=== PATIENT | male | born 1960 | race Caucasian/White ===

== ENCOUNTER → 2021-12-07 08:21 | Outpatient (CLI) | payer BC, SELFPAY ==
--- NOTE | 2021-12-07 08:30 | US_ITS ---
FINAL REPORT TECHNIQUE: Sonographic images were obtained of the retroperitoneum. CLINICAL HISTORY: RENAL INSUFFICIENCY FINDINGS: The right kidney measures 8.7 cm. The left kidney measures 10.1 cm. Two benign simple left renal cysts measuring up to 15 mm. The spleen measures 12.4 cm. IMPRESSION: Mild splenomegaly. Benign simple left renal cysts. Reviewed, Interpreted and Dictated by Karlie Baig MD Transcribed by Epi Andrews Authenticated and [facility]
== END ==
PROVIDERS: PCP Family Medicine; Visit Provider Family Medicine
DX: N28.89 Other specified disorders of kidney and ureter (principal)
CPT/HCPCS: 76770

== ENCOUNTER 2021-12-11 08:48 | Emergency (ER) | payer BC, SELFPAY ==
[2021-12-11 09:00] VITALS: BP 151/83; PULSE 60; RESP 18; TEMP 36.4; O2SAT 99; BMI 28.2
--- NOTE | 2021-12-11 09:24 | EXP.UTC ---
Discharge Plan Disposition Patient Disposition: Home, Self-Care Condition: Good Prescriptions Prescriptions: New cyclobenzaprine 10 mg Tablet 10 mg PO BID PRN (Reason: Muscle Spasm) Qty: 20 0RF methylprednisolone 4 mg Tablets,Dose Pack 4 mg PO DIRECTED Qty: 21 0RF No Action levothyroxine [Synthroid] 137 mcg tablet 137 mcg PO DAILY rosuvastatin 10 mg tablet 10 mg PO DAILY fenofibrate nanocrystallized 145 mg tablet 145 mg PO DAILY Referrals Follow up/Referrals: Karlie Reynolds MD [Primary Care Provider] - See instructions Carlton Espinoza MD [Staff Physician] - See instructions Activity Restrictions/Add. Instructions Additional Instructions/Restrictions: Rest the extremity, apply ice for 15 minutes as tolerated three or four times per day, Wear the traci wrap for compression, Elevate the extremity as tolerated while you are resting. Take the medications as prescribed. Follow up with Dr. Espinoza (orthopedics). I put in a referral but you need to call his office and schedule an appointment. Follow up with your regular doctor. GO TO THE ER FOR ANY WORSENING SYMPTOMS Don't start the oral steroids until tomorrow, since you had the shot here today. The muscle relaxer (cyclobenzaprine--Flexeril) will make you drowsy, so don't drive or operate heavy machinery after taking it. Clinical Impressions Clinical Impression: Acute pain of right shoulder Stand Alone Forms Stand Alone Forms: Work/School Release Instructions Patient Instructions: Shoulder Tendinopathy, DI for Shoulder Pain Discharge ED Provider: Vikram Cantor [facility] General Stated complaint: right shoulder pain, no accident Mode of Arrival: Ambulatory Source of Information: Patient Limitations: No Limitations Time Seen by Provider: 12/11/21 09:24 Description of Symptoms (Recalled from Triage Doc. by RN): PATIENT C/O RIGHT SHOULDER PAIN THAT RADIATES DOWN ARM INTO HAND THAT STARTED YESTERDAY. NO KNOWN INJURY HEENT Symptoms (Recalled from RN notes): No Resp Symptoms (Recalled from RN notes): No Skin Symptoms (Recalled from RN notes): No MS Symptoms (Recalled from RN notes): Yes Functional Status (Recalled from RN notes): WNL History of Present Illness Provider Complaint: He states that since yesterday his right shoulder has been painful and stiff. He has pain when he raises his arm over his head. He denies any recent injury. He has had episodes of right shoulder pain similar to this in the past Related Data Home Medications Medication Instructions Recorded Confirmed fenofibrate nanocrystallized 145 145 mg PO DAILY Cholesterol 12/11/21 12/11/21 mg tablet levothyroxine 137 mcg tablet 137 mcg PO DAILY THYROID 12/11/21 12/11/21 (Synthroid) rosuvastatin 10 mg tablet 10 mg PO DAILY Cholesterol 12/11/21 12/11/21 Previous Rx's Medication Instructions Recorded cyclobenzaprine 10 mg tablet 10 mg PO BID PRN Muscle Spasm #20 12/11/21 tabs methylprednisolone 4 mg tablets in 4 mg PO DIRECTED #21 tabs 12/11/21 a dose pack Allergies Allergy/AdvReac Type Severity Reaction Status Date / Time No Known Allergies Allergy Verified 02/28/19 17:56 Worker's Comp Is this a Worker's Comp case?: No [facility] Medical History Thyroid disease Social History Smoking Status: Never smoker alcohol intake: never current occupational status: other Travel in the last 8 weeks: None ROS Obtained: Yes All systems reviewed & no additional complaints except as documented Constitutional Constitutional: Denies chills and Denies fever(s) Integumentary/Breasts Skin/Breast: Denies redness, Denies rash and Denies wounds Neurologic Neurologic: Denies paresthesias Physical Exam General General appearance: alert and in no apparent distress Head Head exam: atraumatic, normocephalic and normal inspect
[2021-12-11 09:47] VITALS: BP 151/83; PULSE 60; RESP 18; TEMP 36.4; O2SAT 99
== END 2021-12-11 09:59 | disposition home or self-care (01) ==
PROVIDERS: Emergency Provider Nurse Practitioner Family; PCP Family Medicine
DX: M25.511 Pain in right shoulder (principal); M62.838 Other muscle spasm; E07.9 Disorder of thyroid, unspecified; Z79.1 Long term (current) use of non-steroidal anti-inflammatories (NSAID); Z79.52 Long term (current) use of systemic steroids; Z79.899 Other long term (current) drug therapy
CPT/HCPCS: 96372; 99213; G0463

== ENCOUNTER → 2021-12-13 09:33 | Outpatient (CLI) | payer BC, SELFPAY ==
--- NOTE | 2021-12-13 09:37 | XR_ITS ---
FINAL REPORT CLINICAL HISTORY: right shoulder pain x 2 days went to [facility] and given medication with no improvement FINDINGS: RIGHT SHOULDER 3 views of the right shoulder were obtained. There is mild degenerative change of the acromioclavicular joint. The joint spaces are intact. There is no soft tissue abnormality. IMPRESSION: Mild degenerative change of the acromioclavicular joint. Reviewed, Interpreted and Dictated by Del Hayward III, MD Transcribed by Yessy Piper Authenticated and [facility]
--- NOTE | 2021-12-13 11:11 | XR_ITS ---
FINAL REPORT CLINICAL HISTORY: neck/shoulder pain FINDINGS: AP and lateral Views were obtained. There is no acute fracture. There is no malalignment. There is rightward curvature. There are mild degenerative change with osteophytes. There is a chronic calcification posterior to C6. IMPRESSION: Mild degenerative change. Reviewed, Interpreted and Dictated by Del Hayward III, MD Transcribed by Epi Andrews Authenticated and [facility]
== END ==
PROVIDERS: PCP Family Medicine; Visit Provider Orthopaedic Surgery
DX: M25.511 Pain in right shoulder (principal); M54.2 Cervicalgia
CPT/HCPCS: 72040; 73030

== ENCOUNTER → 2021-12-20 14:47 | Outpatient (CLI) | payer BC, SELFPAY | PROVIDERS: PCP Family Medicine; Visit Provider Orthopaedic Surgery | DX: M54.2 Cervicalgia (principal) ==

== ENCOUNTER → 2021-12-22 13:04 | Outpatient (CLI) | payer BC, SELFPAY | PROVIDERS: PCP Family Medicine; Visit Provider Orthopaedic Surgery | DX: M54.2 Cervicalgia (principal) ==

== ENCOUNTER 2021-12-24 09:20 | Observation (INO) | payer BC, SELFPAY ==
[2021-12-24] VITALS (11 sets, daily range): BP systolic 117–157; BP diastolic 70–99; PULSE 82–100; RESP 16–18; TEMP 36.7–37.1; O2SAT 95–99; BMI 27.1; BMI 26.6
[2021-12-24 09:43] LABS: Coronavirus 19, PCR Not Detected (NotDetected); Influenza A, PCR Not Detected (NotDetected); Influenza B, PCR Not Detected (NotDetected)
--- NOTE | 2021-12-24 09:43 | PC.NURSE ---
at the bedside
[2021-12-24 09:45] LABS: Basophils # 0.1 K/mm3 (0-0.2); Basophils % 0.5 % (0.1-2.0); Eosinophils # 0.4 K/mm3 (0.0-0.4); Eosinophils % 2.3 % (0.1-12.0); Hematocrit 55.4 % (42.0-52.0); Hemoglobin 17.9 g/dL (14.1-18.0); Lymphocytes # 1.5 K/mm3 (0.7-4.5); Lymphocytes % 9.8 % (10-50); Mean Corpuscular HGB Conc 32.3 g/dL (31.8-35.4); Mean Corpuscular Hemoglobin 30.7 pg (27.0-31.2); Mean Corpuscular Volume 94.8 fl (80-94); Mean Platelet Volume 9.5 fl (7.4-10.4); Monocytes # 1.2 K/mm3 (0.1-1.0); Monocytes % 7.4 % (1.7-9.3); Neutrophils # 12.4 K/mm3 (1.8-7.8); Platelet Count 410 K/mm3 (142-424); Red Blood Count 5.84 M/mm3 (4.60-6.20); Red Cell Distribution Width 13.2 % (11.5-17.5); White Blood Count 15.5 K/mm3 (4.8-10.8)
[2021-12-24 09:49] LABS: MANUAL DIFFERENTIAL MANUAL DIFFERENTIAL (MANUAL DIFF)
[2021-12-24 09:52] LABS: Chloride 106 mmol/L (98-107); Sodium 136 mmol/L (136-145)
--- NOTE | 2021-12-24 09:52 | HMH.EDGENADL ---
Discharge Plan Disposition Patient Disposition: Admitted As Inpatient Condition: Good Clinical Impressions Clinical Impression: TOBIAS (acute kidney injury), Nausea, vomiting and diarrhea Discharge ED Provider: Fiona Gracia General Adult HPI General Chief complaint: Nausea/Vomiting/Diarrhea Stated complaint: Eyes dilated, diahrrea, vomitting Time Seen by Provider: 12/24/21 09:40 Mode of Arrival: Ambulatory Source of Information: Patient Limitations: No Limitations Description of Symptoms (Recalled from ER Triage Doc. by RN): pt to ed c/o n/v/d x3 days. pt reports generalized abd pain that he thinks is from vomiting. pt states he had a recent neck injury and was prescribed a combination of pain medication, muscle relaxers and anti-inflammatory medications that he believes caused his upset belly. History of Present Illness HPI narrative: This patient is a 61-year-old male presenting to the emergency department for evaluation of 3 days of vomiting and diarrhea. Patient states that he has had profuse watery diarrhea, waking up nearly every 15 minutes at night needing to go to the bathroom. He states that there is no blood or dark tarry material in his stool. His emesis is also nonbloody and nonbilious. He states that he has not been able to keep anything down in 3 days. He denies any true fevers or chills. Nothing seems to make his symptoms better or worse. He also denies any chest pain, shortness of breath, or other concerns. He states that he has mild, diffuse, nonspecific cramping abdominal pain that he attributes to his vomiting. He was thinking that it might be due to medications that he was on for shoulder pain, including tramadol, Flexeril, and [place]. He states that he is no longer taking these. He was only on them for a few days. He denies any other concerns at this time. Related Data Home Medications Medication Instructions Recorded Confirmed fenofibrate nanocrystallized 145 145 mg PO DAILY Cholesterol 12/11/21 12/24/21 mg tablet levothyroxine 137 mcg tablet 137 mcg PO DAILY THYROID 12/11/21 12/24/21 (Synthroid) rosuvastatin 10 mg tablet 10 mg PO DAILY Cholesterol 12/11/21 12/24/21 Allergies Allergy/AdvReac Type Severity Reaction Status Date / Time No Known Allergies [facility]ergy Verified 12/13/21 10:44 [facility] Medical History Thyroid disease Social History Smoking Status: Never smoker alcohol intake: never current occupational status: other Travel in the last 8 weeks: None ROS Obtained: Yes All systems reviewed & no additional complaints except as documented 14 point review of systems obtained and negative except otherwise mentioned in HPI. Physical Exam General General appearance: alert and in no apparent distress Head Head exam: atraumatic and normocephalic Eye Eye exam: Present normal appearance, PERRL and EOMI ENT ENT exam: Present normal exam, normal oropharynx and mucous membranes moist Neck Neck exam: Present normal inspection and full ROM Chest Chest inspection: Present normal inspection and symmetric chest wall rise Respiratory Respiratory exam: Present normal lung sounds bilaterally; Absent respiratory distress or wheezes Cardiovascular Cardiovascular exam: Present regular rate and normal rhythm Abdominal Exam Abdominal exam: Present soft and normal bowel sounds; Absent distention, tenderness, guarding or rebound Extremities Exam Extremities exam: Present normal inspection and full ROM; Absent tenderness or edema Back Exam Back exam: Present normal inspection Neurological Exam Neurological exam: Present alert and oriented X3 Psychiatric Psychiatric exam: Present normal affect Skin Skin exam: Present warm, dry and normal color Lymphatic Lymphatic Findings: no adenopathy Medical Decision Making Rajinder Inquiry Pt receiving controlled substance: No Vital Sig
[2021-12-24 09:53] LABS: Potassium 4.8 mmoL/L (3.5-5.1)
[2021-12-24 09:55] LABS: Alanine Aminotransferase 35 U/L (12-78); Albumin Level 4.1 g/dl (3.5-5.0); Albumin/Globulin Ratio 1.1 (1.1-1.8); Alkaline Phosphatase 59 U/L (38-126); Anion Gap 21.8 mEq/L (5-15); Aspartate Amino Transferase 45 U/L (17-59); Bilirubin,Total 1.2 mg/dl (0.2-1.3); Blood Urea Nitrogen 32 mg/dl (9-20); Carbon Dioxide 13 mmol/L (22.0-30.0); Creatinine Clearance Estimated 49 mL/min (50-200); Estimated Glomerular Filt Rate 41 ml/min (>60); GFR (African American) 50 ML/MIN (>60); Globulin 3.7 g/dL (1.3-3.2); Total Protein,Serum 7.8 g/dl (6.3-8.2)
[2021-12-24 09:56] LABS: Calcium 9.3 mg/dl (8.4-10.2); Glucose 131 mg/dl (74-100); Lactic Acid 1.6 mmol/L (0.7-2.1)
[2021-12-24 09:59] LABS: Eosinophils % 1 % (0-3); Lymphocytes % 11 % (10-50); Monocytes % 7 % (2-9); Neutrophils % 79 % (42-76); Total Cells Counted 100
[2021-12-24 10:00] LABS: Platelet Estimate Slight Increase; RBC Morphology Normal
[2021-12-24 10:03] LABS: Magnesium 1.6 mg/dl (1.6-2.3)
--- NOTE | 2021-12-24 10:09 | CT_ITS ---
PROCEDURE INFORMATION: Exam: CT Abdomen And Pelvis Without Contrast Exam date and time: 12/24/2021 10:09 AM Age: 61 years old Clinical indication: Abdominal pain; Generalized; Additional info: Pain, n/v/d TECHNIQUE: Imaging protocol: Computed tomography of the abdomen and pelvis without contrast. Radiation optimization: All CT scans at this facility use at least one of these dose optimization techniques: automated exposure control; mA and/or kV adjustment per patient size (includes targeted exams where dose is matched to clinical indication); or iterative reconstruction. COMPARISON: US KIDNEY 12/07/2021 8:43 AM FINDINGS: Liver: Normal. No mass. Gallbladder and bile ducts: Normal. No calcified stones. No ductal dilation. Pancreas: Normal. No ductal dilation. Spleen: Normal. No splenomegaly. Adrenal glands: Normal. No mass. Kidneys and ureters: Normal. No hydronephrosis. Stomach and bowel: Unremarkable. No obstruction. No mucosal thickening. Appendix: No evidence of appendicitis. Intraperitoneal space: Unremarkable. No free air. No significant fluid collection. Vasculature: Unremarkable. No abdominal aortic aneurysm. Lymph nodes: Unremarkable. No enlarged lymph nodes. Urinary bladder: Unremarkable as visualized. Reproductive: Unremarkable as visualized. Bones/joints: Unremarkable. No acute fracture. Soft tissues: Unremarkable. IMPRESSION: No acute findings.
--- NOTE | 2021-12-24 10:10 | PC.NURSE ---
CT changed to w/o contrast d/t gfr
--- NOTE | 2021-12-24 10:11 | PC.NURSE ---
radiology notified of rad order
--- NOTE | 2021-12-24 10:11 | PC.NURSE ---
pt to radiology via wheelchair
[2021-12-24 10:14] LABS: Lipase 58 U/L (23-300)
--- NOTE | 2021-12-24 10:29 | PC.NURSE ---
no needs voiced at this time. updated on POC
--- NOTE | 2021-12-24 11:23 | PC.NURSE ---
spoke with dr lozano about admit. 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
--- NOTE | 2021-12-24 12:22 | PC.NURSE ---
called report to dariana on the floor
--- NOTE | 2021-12-24 12:51 | PC.NURSE ---
Pt arrived to the floor at this time
[2021-12-24 13:19] LABS: Adenovirus F 40/41, stool Not Detected (NotDetected); Astrovirus Not Detected (NotDetected); Campylobacter Not Detected (NotDetected); Clostridium Difficile A/B, PCR Not Detected (NotDetected); Cryptosporidium Not Detected (NotDetected); Cyclospora Cayetanesis Not Detected (NotDetected); Entamoeba histolytica Not Detected (NotDetected); Enteroaggregative E coli Not Detected (NotDetected); Enteropathogenic E coli Not Detected (NotDetected); Enterotoxigenic E coli Not Detected (NotDetected); Giardia lamblia Not Detected (NotDetected); Norovirus Not Detected (NotDetected); Plesimonas Shigalloides, PCR Not Detected (NotDetected); Rotavirus A Not Detected (NotDetected); Salmonella, PCR Not Detected (NotDetected); Sapovirus Not Detected (NotDetected); Shiga-like toxin E coli Not Detected (NotDetected); Shigella Enterovasive E coli Not Detected (NotDetected); Vibrio Cholerae Not Detected (NotDetected); Vibrio, PCR Not Detected (NotDetected); Yersinia Entercolitica, PCR Not Detected (NotDetected)
--- NOTE | 2021-12-24 14:58 | EXP.HP ---
History of Present Illness *Admission Date: 12/24/21 *Reason for visit:: Diarrhea *History of present illness: This 61-year-old white male was admitted from the emergency room with diarrhea over the past several days. He is also been having right upper back pain. The story starts November 23 through November 30 when he was on an [place] [place] in the [facility]. He was carrying a backpack of about 25 pounds hiking [facility] [place] [facility]. When he got home he was feeling fine for about a week. Then he developed right upper back pain after a week. He has pain into his right hand and some numbness of his index finger. He was seen in the office of [facility] by Dr. Reynolds. He was treated with a steroid Dosepak and anti-inflammatory by mouth. After 1 day of the steroid Dosepak and the anti-inflammatory he developed abdominal cramping and diarrhea. The diarrhea has persisted. He discontinued the medications. In the emergency room he received IV fluids. A CT of the neck was obtained. See report. This morning he states he is feeling better but still has watery diarrhea. Specimen has been obtained for analysis. 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, [employer] well-balanced diet: daily or most days physical activity: walking special sung needs: No firearms in home: Yes Review of Systems Constitutional Constitutional: Reports system reviewed and no additional complaints, except as documented, Denies fever(s), Denies poor appetite and Denies lethargy Eyes Eyes: Reports system reviewed and no additional complaints, except as documented ENT Ears, Nose, Mouth, and Throat: Reports system reviewed and no additional complaints, except as documented *Cardiovascular Cardiovascular: Reports system reviewed and no additional complaints, except as documented, Denies chest pain, Denies claudication, Denies dyspnea on exertion, Denies irregular heart rhythm and Denies leg edema *Respiratory Respiratory: Denies dyspnea on exertion *Gastrointestinal Gastrointestinal: Reports change in bowel habits, Reports change in stool character, Reports diarrhea and Reports nausea *Genitourinary Genitourinary: Reports system reviewed and no additional complaints, except as documented and Denies difficulty urinating *Musculoskeletal Musculoskeletal: Reports system reviewed and no additional complaints, except as documented and Reports back pain (Right upper back pain radiating to the right arm) *Neurologic Neurologic: Reports system reviewed and no additional complaints, except as documented Psychiatric Psychiatric: Reports system reviewed and no additional complaints, except as documented Endocrine Endocrine: Reports system reviewed and no additional complaints, except as documented Hematologic/Lymphatic Hematologic/Lymphatic: Reports system reviewed and no additional complaints, except as documented Allergic/Immunologic Allergic/Immunologic: Reports system reviewed and no additional complaints, except as documented Meds Home Medications and Allergies Home Medications Medication Instructions Recorded Confirmed Type fenofibrate nanocrystallized 145 145 mg PO DAILY Cholesterol 12/11/21 12/24/21 History mg tablet levothyroxine 137 mcg tablet 137 mcg PO DAILY THYROID 12/11/21 12/24/21 History (Synthroid) rosuvastatin 10 mg tablet 10 mg PO DAILY Cholesterol 12/11/21 12/24/21 History New Prescriptions to Start Prescriptions: Allergies Allergy/AdvReac Type Severit
--- NOTE | 2021-12-24 17:45 | PC.NURSE ---
Patient arrived from ER. VS stable, patient on room air. Patient able to eat, no nausea reported. Diarrhea panel sent. IV antibiotics initiated. No other complaints. Lungs clear on ascultation, no distention in abdomen.
[2021-12-25 03:57] VITALS: BP 122/66; PULSE 69; RESP 16; TEMP 36.8; O2SAT 96
--- NOTE | 2021-12-25 05:00 | PC.NURSE ---
Pt is alert and oriented x 4. Remains on RA. No complaints of ABD pain or N/V. Pt states he is still having diarrhea. Iv atbx given per order. Abd soft, BS active x 4. Lungs CTA. No needs or other complaints voiced. Call light in reach.
[2021-12-25 07:07] LABS: Chloride 106 mmol/L (98-107); Potassium 4.1 mmoL/L (3.5-5.1); Sodium 136 mmol/L (136-145)
[2021-12-25 07:10] LABS: Anion Gap 17.1 mEq/L (5-15); Blood Urea Nitrogen 25 mg/dl (9-20); Calcium 8.6 mg/dl (8.4-10.2); Carbon Dioxide 17 mmol/L (22.0-30.0); Creatinine Clearance Estimated 54 mL/min (50-200); Estimated Glomerular Filt Rate 47 ml/min (>60); GFR (African American) 57 ML/MIN (>60); Glucose 90 mg/dl (74-100)
[2021-12-25 07:12] LABS: Basophils # 0.1 K/mm3 (0-0.2); Basophils % 0.4 % (0.1-2.0); Eosinophils # 0.4 K/mm3 (0.0-0.4); Eosinophils % 3.2 % (0.1-12.0); Hematocrit 44.4 % (42.0-52.0); Lymphocytes # 1.7 K/mm3 (0.7-4.5); Lymphocytes % 12.1 % (10-50); Mean Corpuscular HGB Conc 32.9 g/dL (31.8-35.4); Mean Corpuscular Hemoglobin 31.3 pg (27.0-31.2); Mean Corpuscular Volume 95.2 fl (80-94); Mean Platelet Volume 9.6 fl (7.4-10.4); Monocytes # 0.9 K/mm3 (0.1-1.0); Monocytes % 6.6 % (1.7-9.3); Neutrophils # 10.7 K/mm3 (1.8-7.8); Neutrophils % 77.8 % (37.0-80.0); Platelet Count 300 K/mm3 (142-424); Red Blood Count 4.66 M/mm3 (4.60-6.20); Red Cell Distribution Width 13.2 % (11.5-17.5); White Blood Count 13.8 K/mm3 (4.8-10.8)
[2021-12-25 07:15] LABS: Hemoglobin 14.5 g/dL (14.1-18.0)
--- NOTE | 2021-12-25 07:36 | HMH.PHAINT1 ---
Pharmacy Intervention Comments: MEDICATION RECONCILIATION COMPLETED ON PATIENT USING EXTERNAL FILL HISTORY FROM PHARMACY. -SANIA ULRICH, ELVIND
[2021-12-25 08:00] VITALS: BP 134/66; PULSE 69; RESP 19; TEMP 36.4; O2SAT 97
--- NOTE | 2021-12-25 09:17 | EXP.ACUTE.PN ---
Subjective *Date: 12/25/21 *Time: 09:17 Interval history: Patient feels a little better this morning, still having a lot of bowel movements. Medical Exam Vital signs and Labs for Last 24 Hours: Temp Pulse Resp BP Pulse Ox 98.2 F 69 16 122/66 96 12/25/21 03:57 12/25/21 03:57 12/25/21 03:57 12/25/21 03:57 12/25/21 03:57 Laboratory Results - last 24 hr 12/24/21 09:35: WBC 15.5 H, RBC 5.84, Hgb 17.9, Hct 55.4 H, MCV 94.8 H, MCH 30.7, MCHC 32.3, RDW 13.2, Plt Count 410, MPV 9.5, Neut % (Auto) 80.0, Lymph % (Auto) 9.8 L, [place] % (Auto) 7.4, Eos % (Auto) 2.3, Baso % (Auto) 0.5, Neut # (Auto) 12.4 H, Lymph # (Auto) 1.5, [place] # (Auto) 1.2 H, Eos # (Auto) 0.4, Baso # (Auto) 0.1, Total Counted 100, Neutrophils % (Manual) 79 H, Band Neutrophils % 2.0, Lymphocytes % (Manual) 11, Monocytes % (Manual) 7, Eosinophils % (Manual) 1, Platelet Estimate Slight increase, RBC Morphology Normal 12/24/21 09:35: Sodium 136, Potassium 4.8, Chloride 106, Carbon Dioxide 13 L, Anion Gap 21.8 H, BUN 32 H, Creatinine 1.70 H, Estimated Creat Clear 49, Estimated GFR 41 L, Est GFR ( Amer) 50 L, Glucose 131 H, Calcium 9.3, Total Bilirubin 1.2, AST 45, ALT 35, Alkaline Phosphatase 59, Total Protein 7.8, Albumin 4.1, Globulin 3.7 H, Albumin/Globulin Ratio 1.1 12/24/21 09:35: Lactate 1.6 12/24/21 09:35: Magnesium 1.6 12/24/21 09:35: Lipase 58 12/24/21 09:39: SARS-CoV-2 (PCR) Not detected, Influenza A Untype (PCR) Not detected, Influenza Type B (PCR) Not detected 12/24/21 13:12: Stl Aeromonas (PCR) Not detected, Stl C. cayetanensis PCR Not detected, Stool Rotavirus (PCR) Not detected, Stl Adenov F 40/41 PCR Not detected, Stool Astrovirus (PCR) Not detected, Stool Campylobacter PCR Not detected, Stl C.difficile Tox PCR Not detected, Stool Cryptosporidium PCR Not detected, Stl E.coli Shiga Tox PCR Not detected, Stool E coli O157 PCR Not detected, Stl Enterotoxigenic E PCR Not detected, Stool EPEC (PCR) Not detected, Stool EAEC (PCR) Not detected, Stl E. histolytica PCR Not detected, Stool Giardia Lamblia PCR Not detected, Stool Salmonella PCR Not detected, Stool Sapovirus (PCR) Not detected, Stl P. shigelloides PCR Not detected, Stl Shigella/EIEC PCR Not detected, St Y.enterocolitica PCR Not detected, Stool Vibrio (PCR) Not detected, Stl Vibrio cholerae PCR Not detected, Stl Norovirus GI/GII PCR Not detected 12/25/21 06:00: WBC 13.8 H, RBC 4.66, Hgb 14.5 D, Hct 44.4, MCV 95.2 H, MCH 31.3 H, MCHC 32.9, RDW 13.2, Plt Count 300 D, MPV 9.6, Neut % (Auto) 77.8, Lymph % (Auto) 12.1, [place] % (Auto) 6.6, Eos % (Auto) 3.2, Baso % (Auto) 0.4, Neut # (Auto) 10.7 H, Lymph # (Auto) 1.7, [place] # (Auto) 0.9, Eos # (Auto) 0.4, Baso # (Auto) 0.1 12/25/21 06:00: Sodium 136, Potassium 4.1, Chloride 106, Carbon Dioxide 17 L, Anion Gap 17.1 H, BUN 25 H, Creatinine 1.50 H, Estimated Creat Clear 54, Estimated GFR 47 L, Est GFR ( Amer) 57 L, Glucose 90 D, Calcium 8.6 I & O for Labs for Last 24 Hours: Intake & Output 12/22/21 12/23/21 12/24/21 12/25/21 23:59 23:59 23:59 23:59 Intake Total 340 / 340 Output Total 50 / 50 250 / 250 Balance 290 / 290 -250 / -250 Weight 165 lb Constitutional: Present no acute distress Respiratory: Present CTA bilaterally Cardiac: Present Reg Rate and Rhythm GI: Present soft, tenderness (minimal hypogastric) and normal bowel sounds Extremities: Absent edema Assessment and Plan *Assessment and plan (1) Diarrhea: Status: Acute Category: Medical Code(s): R19.7 - Diarrhea, unspecified (2) TOBIAS (acute kidney injury): Status: Acute Category: Medical Code(s): N17.9 - Acute kidney failure, unspecified (3) Cervical spondylosis with radiculopathy: Status: Acute Category: Medical Code(s): M47.22 - Other spondylosis with radiculopathy, cervical region (4) Neck pain: Status: Acute Category: Medical Code(s): M54.2 - Cervicalgia (5) Acute pain of right shoulder: St
[2021-12-25 16:00] VITALS: BP 131/67; PULSE 69; RESP 20; TEMP 36.5; O2SAT 97
--- NOTE | 2021-12-25 16:27 | PC.NURSE ---
Patient has done well this shift. number of bms has slowed down. no complaints. tolerating diet well. has been up and down independently. alert and oriented. no nausea at this time. fluids infusing. encouraged to ring out as needed.
[2021-12-25 20:00] VITALS: BP 125/66; PULSE 65; RESP 16; TEMP 36.7
[2021-12-26 03:47] VITALS: BP 109/64; PULSE 61; RESP 16; TEMP 36.6; O2SAT 96
[2021-12-26 05:00] VITALS: BMI 26.2
[2021-12-26 06:45] LABS: Basophils # 0.1 K/mm3 (0-0.2); Basophils % 0.6 % (0.1-2.0); Eosinophils # 0.4 K/mm3 (0.0-0.4); Eosinophils % 4.7 % (0.1-12.0); Hematocrit 41.8 % (42.0-52.0); Hemoglobin 13.7 g/dL (14.1-18.0); Lymphocytes # 1.9 K/mm3 (0.7-4.5); Lymphocytes % 21.8 % (10-50); Mean Corpuscular HGB Conc 32.7 g/dL (31.8-35.4); Mean Corpuscular Hemoglobin 31.4 pg (27.0-31.2); Mean Corpuscular Volume 95.8 fl (80-94); Mean Platelet Volume 9.5 fl (7.4-10.4); Monocytes # 0.7 K/mm3 (0.1-1.0); Monocytes % 7.9 % (1.7-9.3); Neutrophils # 5.6 K/mm3 (1.8-7.8); Platelet Count 278 K/mm3 (142-424); Red Blood Count 4.36 M/mm3 (4.60-6.20); Red Cell Distribution Width 13.3 % (11.5-17.5); White Blood Count 8.6 K/mm3 (4.8-10.8)
[2021-12-26 06:53] LABS: Chloride 105 mmol/L (98-107); Potassium 3.9 mmoL/L (3.5-5.1); Sodium 133 mmol/L (136-145)
[2021-12-26 06:55] LABS: Alanine Aminotransferase 20 U/L (12-78); Alkaline Phosphatase 50 U/L (38-126); Aspartate Amino Transferase 26 U/L (17-59); Bilirubin,Total 0.3 mg/dl (0.2-1.3); Blood Urea Nitrogen 16 mg/dl (9-20); Creatinine Clearance Estimated 62 mL/min (50-200); Estimated Glomerular Filt Rate 56 ml/min (>60); GFR (African American) 68 ML/MIN (>60)
[2021-12-26 06:56] LABS: Albumin Level 2.8 g/dl (3.5-5.0); Anion Gap 10.9 mEq/L (5-15); Calcium 8.1 mg/dl (8.4-10.2); Carbon Dioxide 21 mmol/L (22.0-30.0); Globulin 2.9 g/dL (1.3-3.2); Glucose 93 mg/dl (74-100); Total Protein,Serum 5.7 g/dl (6.3-8.2)
--- NOTE | 2021-12-26 07:30 | PC.NURSE ---
Pt aox4. No c/o voiced to staff. Ambulates independently. Call light within reach.
[2021-12-26 08:00] VITALS: BP 121/66; PULSE 69; RESP 14; TEMP 36.4; O2SAT 95
--- NOTE | 2021-12-26 08:59 | EXP.ACUTE.PN ---
Subjective *Date: 12/26/21 *Time: 08:59 Interval history: Patient feels a little better today, fewer bowel movements overnight. Medical Exam Vital signs and Labs for Last 24 Hours: Temp Pulse Resp BP Pulse Ox 97.9 F 61 16 109/64 L 96 12/26/21 03:47 12/26/21 03:47 12/26/21 03:47 12/26/21 03:47 12/26/21 03:47 Laboratory Results - last 24 hr 12/26/21 06:00: WBC 8.6 D, RBC 4.36 L, Hgb 13.7 L, Hct 41.8 L, MCV 95.8 H, MCH 31.4 H, MCHC 32.7, RDW 13.3, Plt Count 278, MPV 9.5, Neut % (Auto) 65.0, Lymph % (Auto) 21.8, [place] % (Auto) 7.9, Eos % (Auto) 4.7, Baso % (Auto) 0.6, Neut # (Auto) 5.6, Lymph # (Auto) 1.9, [place] # (Auto) 0.7, Eos # (Auto) 0.4, Baso # (Auto) 0.1 12/26/21 06:00: Sodium 133 L, Potassium 3.9, Chloride 105, Carbon Dioxide 21 L, Anion Gap 10.9, BUN 16 D, Creatinine 1.30 H, Estimated Creat Clear 62, Estimated GFR 56 L, Est GFR ( Amer) 68, Glucose 93, Calcium 8.1 L, Total Bilirubin 0.3, AST 26 D, ALT 20 D, Alkaline Phosphatase 50, Total Protein 5.7 L D, Albumin 2.8 L, Globulin 2.9, Albumin/Globulin Ratio 1.0 L I & O for Labs for Last 24 Hours: Intake & Output 12/23/21 12/24/21 12/25/21 12/26/21 23:59 23:59 23:59 23:59 Intake Total 340 / 340 1159 / 1159 Output Total 50 / 50 600 / 600 350 / 350 Balance 290 / 290 559 / 559 -350 / -350 Weight 165 lb 163 lb Constitutional: Present no acute distress Respiratory: Present CTA bilaterally Cardiac: Present Reg Rate and Rhythm GI: Present soft, tenderness (minimal hypogastric) and normal bowel sounds Extremities: Absent edema Assessment and Plan *Assessment and plan (1) Diarrhea: Status: Acute Category: Medical Code(s): R19.7 - Diarrhea, unspecified (2) TOBIAS (acute kidney injury): Status: Acute Category: Medical Code(s): N17.9 - Acute kidney failure, unspecified (3) Cervical spondylosis with radiculopathy: Status: Acute Category: Medical Code(s): M47.22 - Other spondylosis with radiculopathy, cervical region (4) Neck pain: Status: Acute Category: Medical Code(s): M54.2 - Cervicalgia (5) Acute pain of right shoulder: Status: Acute Category: Medical Code(s): M25.511 - Pain in right shoulder Plan Pt has improved, OK to discharge home today.
--- NOTE | 2021-12-27 14:28 | CARE MANAGER ---
Contacted patient related to hospital discharge. he picked up his prescription and is aware of his follow up appointment. He denies any questions or concerns at this time. MATY Sherwood
--- NOTE | 2021-12-28 16:28 | EXP.DC.SUM ---
General Admission date:: 12/24/21 Discharge date: 12/26/21 HPI HPI HPI: This 61-year-old white male was admitted from the emergency room with diarrhea over the past several days. He is also been having right upper back pain. The story starts November 23 through November 30 when he was on an [employer]rera in the [facility]. He was carrying a backpack of about 25 pounds [facility]. When he got home he was feeling fine for about a week. Then he developed right upper back pain after a week. He has pain into his right hand and some numbness of his index finger. He was seen in the office of [facility] by Dr. Reynolds. He was treated with a steroid Dosepak and anti-inflammatory by mouth. After 1 day of the steroid Dosepak and the anti-inflammatory he developed abdominal cramping and diarrhea. The diarrhea has persisted. He discontinued the medications. In the emergency room he received IV fluids. A CT of the neck was obtained. See report. This morning he states he is feeling better but still has watery diarrhea. Specimen has been obtained for analysis. Hospital Course Hospital Course Hospital Course: The patient was admitted and started on IV fluids. This improved his general condition and hydration. His diarrhea persisted and he still reported pain in the back and shoulder area along with radiculopathy. It was felt this will require further evaluation. He had a stool panel which was negative. He was continued on Flagyl and started on Imodium. By 12/26/2021, he felt better and had had fewer bowel movements overnight. It was felt he was stable to be discharged home and will follow-up in the office. Exam Data for Last 24 hours Vital signs and Labs for Last 24 Hours: Temp Pulse Resp BP Pulse Ox 97.6 F 69 14 121/66 95 12/26/21 08:00 12/26/21 08:00 12/26/21 08:00 12/26/21 08:00 12/26/21 08:00 I & O for Last 24 hours: Intake & Output 12/26/21 12/27/21 12/28/21 12/29/21 11:59 11:59 11:59 11:59 Intake Total 919 / 919 Output Total 700 / 700 Balance 219 / 219 Weight 163 lb Narrative: Constitutional Constitutional: no acute distress *Routine HEENT Exam Head: Present normocephalic Eye: Present EOMI and PERRL ENT: Present mucous membranes moist *Routine Neck Exam Neck: Present supple and full ROM; Absent JVD Routine Chest/Breast/Axilla Exam Chest wall: Absent tenderness Breast: Absent tenderness Axillae: Absent lymphadenopathy *Routine Respiratory Exam Respiratory: Present CTA bilaterally; Absent rales *Routine Cardiovascular Exam Cardiovascular: Present RRR, Normal S1 and Normal S2; Absent murmur or rubs *Routine Abdominal Exam Abdominal: Present soft; Absent normoactive bowel sounds (Hyperactive), tenderness, distended, rebound or guarding *Routine Rectal Exam Rectal:: deferred *Routine Genitalia Exam Genitalia:: deferred *Routine Extremities Exam Extremities: Absent edema Comments: Reports numbness right index finger Routine Back/Spine/Pelvis Exam Back/Spine: Present paraspinal tenderness (Right upper back) *Routine Skin Exam Skin: Present intact *Routine Neurological Exam Neurological: Present alert, oriented X3 and CN II-XII intact; Absent altered mental status Routine Psychiatric Exam Psychiatric: Present normal affect and normal thought process DS: Diagnosis Discharge Diagnosis (1) Diarrhea: Status: Acute (2) TOBIAS (acute kidney injury): Status: Acute (3) Cervical spondylosis with radiculopathy: Status: Acute (4) Neck pain: Status: Acute (5) Acute pain of right shoulder: Status: Acute Meds Home Medications and Allergies Home Medications Medication Instructions Recorded Confirmed Type fenofibrate nanocrystallized 145 145 mg PO DAILY Cholesterol 12/11/21 12/24/21 History mg tablet levothyroxine 137 mcg tablet 137 mcg PO DAILY THYROID 12/11/21 12/24/21 History (Synthroid) rosuvastatin 10 mg
== END 2021-12-26 11:05 | disposition home or self-care (01) ==
LOC: ER 11:23 → 2ND 13:20
PROVIDERS: Family Medicine; Admitting Provider Family Medicine; Emergency Provider Emergency Medicine; PCP Family Medicine; Visit Provider Family Medicine
DX: N17.9 Acute kidney failure, unspecified (principal); R19.7 Diarrhea, unspecified; M47.22 Other spondylosis with radiculopathy, cervical region; M54.2 Cervicalgia; M25.511 Pain in right shoulder
CPT/HCPCS: 36415; 74176; 80048; 80053; 83605; 83690; 83735; 85007; 85025; 87507; 99285; C9803; G0378; J2405; U0003; U0005

== ENCOUNTER 2021-12-28 09:00 | Outpatient (RCR) | payer BC, SELFPAY ==
--- NOTE | 2021-12-20 09:32 | HMH.PTOPEV ---
PT Outpatient Evaluation Rehab PT Outpatient Evaluation Start: 12/20/21 08:59 Freq: Status: Active Protocol: Document 12/20/21 09:18 NEAL (Rec: 12/20/21 09:32 NEAL [id number]) E-signed By Raphael Melchor, PT Outpatient Therapy Subjective History Subjective History Pt reports acute onset right UE pain beginning ~2 weeks ago . Pt reports h/o neck pain, however, reports no neck pain with this exacerbation only severe unrelenting right UE pain from upper trap/shoulder to right index finger and thumb. Pt reports intense N&T in right index finger, weakness in right arm, and unable to find comfortable position. Pt reports MRI of cervical spine today. Chief Complaint Pain,Stiff,Paresthesia, Weakness Symptom Type Ache,Sharp,Dull,Stabbing, Burning,Numbness,Tingling, Shooting Symptoms Relieved By Nothing Symptoms Aggravated By Physical Activity,Lifting Prior Functional Limitations None Current Functional Limitations Reaching,Lifting,Housework, Driving,Sleeping Symptom Description Constant and Continuous Level of pain today (0-10) 10 Pain scale - at its best (0-10) 10 Pain scale - at its worst (0-10) 10 Cervical Eval Palpation Cervical Muscles R Cervical Paraspinal,R CT Junction,L Upper Trapezius Cervical/Thoracic Palpation Findings Tenderness,Trigger Point, Muscle Guarding Posture Head/C-Spine Posture Sitting Position Flexed Head/C-Spine Posture Standing Position Flexed Flexibility Deficits Upper Trapezius Muscle Length (R) Moderate Tightness Scalene Group Muscle Length (R) Moderate Tightness Passive Joint Mobility Cervical PIVM Dec: R OA L OA R AA L AA R C2/3 L C2/3 R C3/4 L C3/4 R C4/5 L C4/5 R C5/6 L C5/6 R C6/7 L C6/7
== END 2021-12-28 09:05 | disposition home or self-care (01) ==
LOC: PT 09:00
PROVIDERS: PCP Family Medicine; Visit Provider Orthopaedic Surgery
DX: M54.2 Cervicalgia (principal); M47.22 Other spondylosis with radiculopathy, cervical region; M25.511 Pain in right shoulder
CPT/HCPCS: 97010; 97014; 97163; 97535; G0283

== ENCOUNTER → 2022-01-18 07:57 | Outpatient (CLI) | payer BC, SELFPAY | PROVIDERS: PCP Family Medicine; Visit Provider Orthopaedic Surgery | DX: M54.2 Cervicalgia (principal) ==

== ENCOUNTER 2022-03-07 09:40 | Day surgery (SDC) | payer BC, SELFPAY ==
[2022-02-12 13:07] VITALS: BMI 28.7
[2022-03-07] VITALS (7 sets, daily range): BP systolic 91–121; BP diastolic 60–72; PULSE 51–60; RESP 16–18; TEMP 36.3; O2SAT 96–97
--- NOTE | 2022-03-07 10:34 | P.PN_ITS ---
[facility] Disclaimer: The information contained in this section may have been updated after the patient was seen, as this information can be updated by other users. 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, [employer] well-balanced diet: daily or most days physical activity: walking special sung needs: No firearms in home: Yes do you feel safe at home: Yes victim of physical abuse: No victim of emotional abuse: No victim of sexual abuse: No would you like helpful sources: No [facility] Anesthesia Checklist Patient Identification Patient Identification: Arm Band and Verbal (Name & ) Structural Data Admitted From: Home Planned Operative Procedure/s: Colonoscopy Consent for Planned Operative Procedure(s) Verified: Yes NPO Status Verified Time NPO: 00:00 Airway Assessment C-Spine Mobility Assessed: Yes TMJ Mobility Assessed: Yes Dentition: Good Dentition Neurological Assessment Level of Consciousness: Awake Hx Seizures: No Numbness or tingling in extremities: No Anesthesia Plan Anesthesia Risk discussed: Yes Anesthesia Plan: Verified ASA Class: II Anesthesia Type: MAC
--- NOTE | 2022-03-07 11:13 | HMH.SCOPE ---
Procedure: Date: 03/07/22 Patient Date of :: 1960 Procedure Performed:: Colonoscopy Indications:: History of polyps. The patient reports last colonoscopy 12 years ago Performing Provider:: Barney Gerardo MD Referring Provider:: Dave Reynolds MD Sedation:: See RN records Procedure:: After placing the patient in the left lateral decubitus position, the colonoscopy was gently inserted into the rectum and under direct visualization advanced to the cecum which was identified by transillumination in the right lower quadrant, identification of the ileocecal valve, appendiceal orifice, and cecal strap. Color, texture, mucosa, and anatomy of the colon were carefully examined with the scope. Findings:: Anal canal: normal Rectum: normal Sigmoid colon: normal without polyps or inflammatory changes Descending colon: normal without polyps or inflammatory changes Splenic flexure: Sessile polyp less than 5 mm in size. Removed with cold forceps Transverse colon: normal without polyps or inflammatory changes Hepatic flexure: normal Ascending colon: normal without polyps or inflammatory changes Cecum: Sessile polyp less than 5 mm in size. Removed with cold forceps Terminal ileum: not visualized Recommendations:: Await pathology results Repeat colonoscopy in 5 years Complications:: None Estimated blood obtained (mL): 0
== END 2022-03-07 11:40 | disposition home or self-care (01) ==
PROVIDERS: PCP Family Medicine; Visit Provider Internal Medicine
PROC: 0DJD8ZZ Inspection of Lower Intestinal Tract, Via Natural or Artificial Opening Endoscopic (ICD-10-PCS; CPT 45378; principal; 2022-03-07 11:30)
DX: Z12.11 Encounter for screening for malignant neoplasm of colon (principal); Z86.010 Personal history of colon polyps; D12.6 Benign neoplasm of colon, unspecified; Z79.899 Other long term (current) drug therapy
CPT/HCPCS: 45380; 88305

== ENCOUNTER 2024-08-14 08:29 | Outpatient (CLI) | payer BC, SELFPAY | END 2024-08-14 23:59 | disposition home or self-care (01) | LOC: LAB.DROPOF 08-17 08:30 | PROVIDERS: PCP Family Medicine; Visit Provider Nurse Practitioner | DX: T14.8XXA Other injury of unspecified body region, initial encounter (principal) | CPT/HCPCS: 87070; 87077; 87205 ==

== ENCOUNTER 2024-12-03 07:18 | Day surgery (SDC) | payer BC, SELFPAY ==
[2024-12-01 13:32] VITALS: BMI 28.1
--- NOTE | 2024-12-02 16:38 | P.HP_ITS ---
History of Present Illness *Admission Date: 12/03/24 *History of present illness: Mr. Stratton is a 64-year-old gentleman who is here for diagnostic upper endoscopy. The patient presented recently with dysphagia to solids primarily over the last year and this haD worsened. This did catch his attention to get s omething done a couple of months ago when he tried to wash down the food bolus and the liquid came out and he aspirated some of this and was choking and had trouble breathing. He does state that this occurs with almost all solid foods and when this gets plugged or hung up, he must wait for this to go down but oftentimes will have to regurgitate the food bolus. He reports no heartburn, reflux, bloating, belching or abdominal pain. Occasionally he will have some painful swallowing. He has had no weight loss. He reports no family history of esophageal, gastric or colon cancer. The patient did have a CT scan of the abdomen in December 2021 that was essentially normal. He did have a colonoscopy (Dr. Barney Gerardo) in February 2022 and had 2 polyps (tubular adenomas x 2) and was given 5-year surveillance (February 2027). The patient has never had an upper endoscopy. the examination is deemed medically necessary for diagnostic EGD. The patient has been seen, interviewed and examined prior to the procedure by both myself and the anesthesia provider. [facility] Disclaimer: The information contained in this section may have been updated after the patient was seen, as this information can be updated by other users. Medical History Encounter for wound re-check Open wound, hand Wound infection Foreign body in right ear, initial encounter Impacted cerumen of right ear Hearing loss in right ear Bilateral impacted cerumen Thyroid disease Surgical History Hx of colonoscopy No significant past surgical history Family History Other Family history of diabetes mellitus type II Social History (Updated 12/03/24 @ 08:19 by Waleska Rob RN) Smoking Status: Never smoker alcohol intake: never substance use type: denies use current occupational status: employed Travel in the last 8 weeks?: None household members: spouse housing: house lives independently: Yes marital status: number of children: 0 education level: vocational 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, [employer] well-balanced diet: daily or most days caffeine: No physical activity: walking special sung needs: No firearms in home: Yes do you feel safe at home: Yes victim of physical abuse: No victim of emotional abuse: No victim of sexual abuse: No would you like helpful sources: No Have you lived/traveled outside US in past 30 days?: No Contact w/someone who lives/traveled outside US past 30 days?: No Exposure to someone with infectious disease in past 14 days?: No Do you have a fever (greater than 100.4 F or 38 C)?: No Have you tested positive for COVID-19?: No Exposed to someone with COVID-19 in past 14 days?: No Do you have a sore throat?: No Do you have a cough?: No Do you have any weakness?: No Are you experiencing any nausea/vomitting?: No Do you have any diarrhea?: No Are you experiencing any unusual bleeding?: No Do you have any muscle aches/pain?: No Do you have any abdominal pain?: No Are you experiencing loss of taste or smell?: No Other Medical History Have you received the Flu Vaccine for this season: No Have you received the Pneumonia Vaccine: Yes Review of Systems Review of Systems Review of systems (narrative): Negative *Cardiovascular Comments: Negative *Gastrointestinal Comments: Negative *Genitourinary Comments: Negative *Musculoskeletal Comments: Negative *Neurologic Comments: Negative Meds Home Medications and Allergies Home Medications ?Medication ?Instructions ?Recorded ?Confirmed ?Type fenofibrate nanocrystallized 145 145 mg PO DAILY Rosanne sterol 12/11/21 12/01/24 History mg tablet levothyroxine 137 mcg tablet 137 mcg PO DAILY THYROID 12/11/21 12/03/24 History (Synthroid) rosuvastatin 10 mg tablet 10 mg PO DAILY Cholesterol 1 12/03/24 History dapagliflozin propanediol 10 mg 10 mg PO DAILY 08/14/2 5 12/01/24 History tablet (Farxiga) coenzyme [id number] E 100 mg-100 2 cap PO DAILY 09/2312/03/24 History unit capsule New Prescriptions to Start Prescriptions: Allergies Allergy/AdvReac Type Severity Reaction Status Date / Time No Known Allergies Allergy Verified 12/03/24 08:15 Exam Data for Last 24 hours I & O for Last 24 hours: Intake & Output 11/29/24 11/30/24 12/01/24 12/02/24 23:59 23:59 23:59 23:59 Weight 180 lb *Routine HEENT Exam Head: Present normocephalic Eye: Present EOMI and PERRL ENT: Present mucous membranes moist *Routine Neck Exam Neck: Present supple *Routine Respiratory Exam Respiratory: Present CTA bilaterally *Routine Cardiovascular Exam Cardiovascular: Present RRR *Routine Abdominal Exam Abdominal: Present soft and normoactive bowel sounds; Absent tenderness *Routine Rectal Exam Rectal:: deferred *Routine Genitalia Exam Genitalia:: deferred *Routine Extremities Exam Extremities: Absent cyanosis, clubbing or edema *Routine Skin Exam Skin: Present warm; Absent rash *Routine Neurological Exam Neurological: Present alert and oriented X3 Assessment and Plan *Assessment and plan (1) Dysphagia: Status: Acute Category: Medical Code(s): R13.10 - Dysphagia, unspecified Plan A/P: 1. Dysphagia is the preprocedural diagnosis. The patient will be anesthetized/sedated using MAC sedation. The patient has been seen and examined. Cardiac and lung assessment prior to the examination is stable. Proceed with planned diagnostic/therapeutic EGD.
--- NOTE | 2024-12-03 07:04 | P.PCN_ITS ---
[facility] Procedure Note Date: 12/03/24 Time: 08:59 Procedure Note:: Upper Endoscopy Procedure Report: Esophagogastroduodenoscopy with cold biopsies and TTS balloon dilation Endoscopost: Shashi Lopez II, MD Referring Physician: Dave Reynolds MD Date of Procedure: December 03, 2024 Equipment: Olympus GIF-1100 standard upper endoscope Sedation: MAC sedation Indications: Mr. Stratton is a 64-year-old gentleman who is here for diagnostic upper endoscopy. The patient presented recently with dysphagia to solids primarily over the last year and this has worsened. This did catch his attention to get something done a couple of months ago when he tried to wash down the food bolus and the liquid came out and he aspirated some of this and was choking and had trouble breathing. This has improved since he did see me in the office. He does state that this was occurring with almost all solid foods and when this gets hung up, he must wait for this to go down but oftentimes will have to regurgitate the food bolus. He reports no heartburn, reflux, bloating, belching or abdominal pain. Occasionally he will have some painful swallowing. He has had no weight loss. He reports no family history of esophageal, gastric or colon cancer. The patient did have a CT scan of the abdomen in December 2021 that was essentially normal. He did have a colonoscopy (Dr. Barney Gerardo) in February 2022 and had 2 polyps (tubular adenomas x 2) and was given 5-year surveillance (February 2027). The patient has never had an upper endoscopy. the examination is deemed medically necessary for diagnostic EGD. Procedure: Prior to the procedure, a history and physical exam was performed, and patient's medications and allergies were reviewed. The risks, benefits and alternatives of the sedation and procedure were discussed with the patient. All questions were answered and informed consent was obtained. The patient was brought to the procedure room. Patient identification and proposed procedure were verified by the physician and the nurse. The patient was placed in a left lateral decubitus position and the scope was passed under direct vision. Throughout the procedure, the patient's blood pressure, pulse, and oxygen saturations were monitored continuously. The upper GI endoscopy was accomplished without difficulty. The patient tolerated the procedure well. Findings: The scope was passed directly into the upper esophagus and advanced to the third portion of the duodenum. The post bulbar duodenum, ampulla and duodenal bulb were normal with normal mucosa and conniventes. A cold biopsy was taken from the second portion of the duodenum for the disaccharidase assay. There was mild peptic duodenitis of the bulb. The scope was withdrawn through a normal duodenal bulb and pylorus into the stomach. There was some mild antral gastropathy. A cold biopsy was taken along the lesser curvature/incisura to rule out H. pylori. The body and fundus of the stomach were normal. Upon retroflexion there was a small 1 to 2 cm sliding hiatal hernia. The scope was then withdrawn into the esophagus. There was a distal Schatzki's ring/fibrous ring and the original diameter was 12 mm. This was dilated to 20 mm with a TTS hydrostatic balloon. There was no evidence of reflux esophagitis or Wilson's. 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 The remainder of the esophageal mucosa was normal. Impression: 1. Schatzki's ring dilated to 20 mm diameter (from 12 mm diameter) 2. Mild gastric antral gastropathy Plan: I will follow-up the biopsies and disaccharidase assay. I would recommend omeprazole 40 mg daily for 3 months. I will discuss the findings with the patient and family.
[2024-12-03 08:12] VITALS: BP 149/93; PULSE 60; RESP 16; TEMP 36.1; O2SAT 95
[2024-12-03] MEDS: LACTATED RINGERS 1000ML 1,000 ML 50 ML IV (08:25)
--- NOTE | 2024-12-03 08:29 | P.PNANES_ITS ---
[facility] Disclaimer: The information contained in this section may have been updated after the patient was seen, as this information can be updated by other users. Medical History Encounter for wound re-check Open wound, hand Wound infection Foreign body in right ear, initial encounter Impacted cerumen of right ear Hearing loss in right ear Bilateral impacted cerumen Thyroid disease Surgical History Hx of colonoscopy No significant past surgical history Family History Other Family history of diabetes mellitus type II Social History (Updated 12/03/24 @ 08:19 by Waleska Rob RN) Smoking Status: Never smoker alcohol intake: never substance use type: denies use current occupational status: employed Travel in the last 8 weeks?: None household members: spouse housing: house lives independently: Yes marital status: number of children: 0 education level: vocational 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, [employer] well-balanced diet: daily or most days caffeine: No physical activity: walking special sung needs: No firearms in home: Yes do you feel safe at home: Yes victim of physical abuse: No victim of emotional abuse: No victim of sexual abuse: No would you like helpful sources: No Have you lived/traveled outside US in past 30 days?: No Contact w/someone who lives/traveled outside US past 30 days?: No Exposure to someone with infectious disease in past 14 days?: No Do you have a fever (greater than 100.4 F or 38 C)?: No Have you tested positive for COVID-19?: No Exposed to someone with COVID-19 in past 14 days?: No Do you have a sore throat?: No Do you have a cough?: No Do you have any weakness?: No Are you experiencing any nausea/vomitting?: No Do you have any diarrhea?: No Are you experiencing any unusual bleeding?: No Do you have any muscle aches/pain?: No Do you have any abdominal pain?: No Are you experiencing loss of taste or smell?: No [facility] Anesthesia Checklist Patient Identification Patient Identification: Arm Band and Verbal (Name & ) Structural Data Admitted From: Home Planned Operative Procedure/s: EGD Consent for Planned Operative Procedure(s) Verified: Yes Verified Documents: Surgical Consent NPO Status Verified Time NPO: 00:00 Chart Verification Results Verified: None Additional verifications Anesthesia Reactions: No Airway Assessment Mallampati Score:: Class II C-Spine Mobility Assessed: Yes TMJ Mobility Assessed: Yes Dentition: Good Dentition Neurological Assessment Level of Consciousness: Awake, Alert and Appropriate Hx Seizures: No Numbness or tingling in extremities: No Anesthesia Plan Anesthesia Risk discussed: Yes Anesthesia Plan: Verified ASA Class: II Anesthesia Type: MAC
[2024-12-03 09:01] VITALS: BP 115/69; PULSE 68; RESP 18; TEMP 36.4; O2SAT 92
[2024-12-03 09:11] VITALS: BP 118/83; PULSE 56; RESP 18; O2SAT 94
[2024-12-03 09:21] VITALS: BP 118/72; PULSE 57; RESP 18; O2SAT 95
[2024-12-03 09:31] VITALS: BP 122/74; PULSE 55; RESP 18; O2SAT 95
[2024-12-03 09:45] VITALS: BP 132/84; PULSE 55; RESP 18; O2SAT 98
== END 2024-12-03 09:45 | disposition home or self-care (01) ==
PROVIDERS: PCP Family Medicine; Visit Provider Internal Medicine Gastroenterology
PROC: 0DJ08ZZ Inspection of Upper Intestinal Tract, Via Natural or Artificial Opening Endoscopic (ICD-10-PCS; CPT 43239; principal; 2024-12-03 09:00)
DX: K22.2 Esophageal obstruction (principal); K44.9 Diaphragmatic hernia without obstruction or gangrene; K29.80 Duodenitis without bleeding; K31.89 Other diseases of stomach and duodenum; Z86.0101 Personal history of adenomatous and serrated colon polyps
CPT/HCPCS: 43239; 43249; 82657; C1726; J2003; J2704; J7120